=== PATIENT | male | born 1945 | race Caucasian/White ===

== ENCOUNTER 2018-05-23 01:47 | Inpatient (IN) | payer OTHER ==
[~2018-05-23] VITALS: Ht 185.4 cm; Wt 114.6 kg
[2018-05-23 02:09] LABS: BASOPHILS # (AUTO) 0.01 x10^3/uL (0-0.1); BASOPHILS % (AUTO) 0 % (0-1); EOSINOPHILS # (AUTO) 0.12 x10^3/uL (0-0.4); EOSINOPHILS % (AUTO) 1 % (1-7); LYMPHOCYTES # (AUTO) 1.11 x10^3/uL (1-3.4); LYMPHOCYTES % (AUTO) 13 % (22-44); MD NO; MEAN CORPUSCULAR HEMOGLOBIN 32.5 pg (27.5-34.5); MEAN CORPUSCULAR HGB CONC 34.5 g/dL (33.2-36.2); MEAN CORPUSCULAR VOLUME 94.3 fL (81-97); MEAN PLATELET VOLUME 7.6 fL (7.4-10.4); MONOCYTES # (AUTO) 0.67 x10^3/uL (0.2-0.8); MONOCYTES % (AUTO) 8 % (2-9); NEUTROPHILS # (AUTO) 6.47 x10^3/uL (1.8-6.8); NEUTROPHILS % (AUTO) 77 % (42-75); PLATELET COUNT 234 x10^3/uL (130-400); RED BLOOD COUNT 3.79 x10^6/uL (4.38-5.82); RED CELL DISTRIBUTION WIDTH 14.5 % (9.4-14.8)
[2018-05-23] MEDS ORDERED: DILT120C97 PO (02:12)
[2018-05-23] MEDS ORDERED: GABA800T PO (02:12)
[2018-05-23] MEDS ORDERED: VALS320T2 PO (02:12)
[2018-05-23] MEDS ORDERED: PRAV20TA2 PO (02:12)
[2018-05-23] MEDS ORDERED: PANT40TA3 PO (02:12)
[2018-05-23] MEDS ORDERED: CARV12.543 PO (02:12)
[2018-05-23] MEDS ORDERED: FURO40TA6 PO (02:12)
[2018-05-23] MEDS ORDERED: MORP-52 PO (02:12)
[2018-05-23] MEDS ORDERED: INSU100V8 SQ (02:12)
[2018-05-23] MEDS ORDERED: GLIP10TA PO (02:12)
[2018-05-23] MEDS ORDERED: HUMALOG SLIDING (02:12)
[2018-05-23] MEDS ORDERED: OXYC10TA6 PO (02:15)
[2018-05-23] MEDS ORDERED: TESTOSTERONE (02:15)
[2018-05-23] MEDS ORDERED: VIT D (02:15)
[2018-05-23] MEDS ORDERED: ALPH300C PO (02:15)
[2018-05-23] MEDS ORDERED: VIT B (02:15)
[2018-05-23] MEDS ORDERED: MULT1TAB9 PO (02:15)
[2018-05-23] MEDS ORDERED: [UNRECOGNIZED DRUG - OTHER] (02:15)
[2018-05-23 02:21] LABS: ALBUMIN 3.5 g/dL (3.4-5.0); ANION GAP 6 mmol/L (5-15); CALCIUM 9.4 mg/dL (8.5-10.1); CHLORIDE 108 mmol/L (98-107); CREATININE 1.84 mg/dL (0.7-1.3)
[2018-05-23 02:25] LABS: TROPONIN I 0.087 ng/mL (0.000-0.045)
--- NOTE | 2018-05-23 02:25 | NUR ---
DOPAMINE CHECKED WITH SILVESTRE GILL RN
[2018-05-23] MEDS ORDERED: DOPAMINE/D5W PMX 250 ML IV PRN (02:30)
[2018-05-23] MEDS ORDERED: PROPOFOL 100 ML IV PRN (02:30)
--- NOTE | 2018-05-23 02:30 | NUR ---
PT BIB CARE FLIGHT FROM [place]. EMS WAS CALLED BY PATIENT'S FAMILY TONIGHT. PT WAS FOUND TO BE IN 3 DEGREE HEART BLOCK EMS STARTED PACING PATIENT. PATIENT ARRIVED TO ED AND THEN WAS INTUBATED. PT PACED AT 70 BPM. STRONG RADIAL PULSE. PT IS SEDATED. VS STABLE. DR GASCA HAS SEEN PATIENT. WILL CONTINUE TO MONITOR.
--- NOTE | 2018-05-23 02:31 | NUR ---
TP RN: PT W/ NON-CONTRACTED INSURER, SR CARE PLUS. PER ERP/CARDIOLOGY, PT NOT STABLE ENOUGH FOR TRANSPORT AND WILL BE IMMEDIATELY TRANSPORTED TO [facility] FOR PERMANENT PACEMAKER. [facility] TRANSFER [facility]ENTER MADE AWARE
--- NOTE | 2018-05-23 02:32 | NUR ---
VENT SETTINGS: OXYGEN 30%, PEEP 5, RESP 16 RT IN ROOM
--- NOTE | 2018-05-23 02:40 | NUR ---
OG TUBE AND CARDOSO PLACED WHOLESALE DIAMOND BROKER. DR PARIKH IN ROOM
--- NOTE | 2018-05-23 02:41 | NUR ---
RT IN ROOM DOING ORAL CARE
--- NOTE | 2018-05-23 02:51 | NUR ---
DEONTE STARR: [phone]
--- NOTE | 2018-05-23 02:51 | NUR ---
DOPAMINE STOPPED PER DR GASCA
[2018-05-23] MEDS ORDERED: LIDOCAINE 1%, 20ML ONE (03:05)
[2018-05-23] MEDS ORDERED: SODIUM CHLORIDE 0.9% 1,000 ML IV SCH (03:28)
[2018-05-23] MEDS ORDERED: DOCUSATE 100 MG CAPSULE PO PRN (03:30)
[2018-05-23] MEDS ORDERED: ONDANSETRON ODT 4 MG PO PRN (03:30)
[2018-05-23] MEDS ORDERED: GABAPENTIN 300 MG CAPSULE PO PRN (03:30)
[2018-05-23] MEDS ORDERED: PROMETHAZINE 25 MG/ML, 1ML IM PRN (03:30)
[2018-05-23] MEDS ORDERED: morphine SULFATE 10 MG/ML, 1ML IVPush PRN (03:30)
[2018-05-23] MEDS ORDERED: POLYETHYLENE GLYCOL 17 GM PACKET PO PRN (03:30)
[2018-05-23] MEDS ORDERED: ONDANSETRON 2MG/ML, 2ML IVPush PRN (03:30)
[2018-05-23] MEDS ORDERED: hydrALAzine 20 MG/ML, 1ML IVPush PRN (03:30)
[2018-05-23] MEDS ORDERED: ACETAMINOPHEN 325 MG TABLET PO PRN (03:30)
[2018-05-23] MEDS ORDERED: BISACODYL 10 MG SUPP PR PRN ×2 (03:30→06:00)
[2018-05-23] MEDS ORDERED: PROPOFOL 100 ML IV ONE (03:47)
[2018-05-23] MEDS ORDERED: FENTANYL PF 100 MCG/2ML ONE (03:53)
[2018-05-23 03:54] LABS: HEMOGLOBIN A1C 9.7 % (4.2-6.3)
[2018-05-23 03:56] LABS: FREE T4 (FREE THYROXINE) 1.22 ng/dL (0.76-1.46); THYROID STIMULATING HORMONE 0.858 mIU/L (0.358-3.740)
[2018-05-23 05:30] VITALS: BP 143/62
[2018-05-23] MEDS ORDERED: DEXTROSE 50%, 50ML SYRINGE IVPush PRN (06:00)
[2018-05-23] MEDS: ALBUTEROL/IPRATROPIUM 2.5MG/0.5MG, 3 ML INLINE SCH ×5 (06:00→22:00)
[2018-05-23] MEDS ORDERED: LACTULOSE 20 GM/30 ML UDC NG PRN (06:00)
[2018-05-23] MEDS ORDERED: PHARMACY MAY ADJ FOR RENAL FX MC SCH (06:00)
[2018-05-23] MEDS ORDERED: SENNA/DOCUSATE TABLET NG PRN (06:00)
[2018-05-23] MEDS ORDERED: GLUCAGON 1 MG IM PRN (06:00)
[2018-05-23] MEDS ORDERED: DEXTROSE 4 GM TAB.CHEW PO PRN (06:00)
[2018-05-23] MEDS ORDERED: SENNOSIDES 8.8 MG/5 ML ORAL SOL NG PRN (06:00)
[2018-05-23] MEDS ORDERED: LIDOCAINE-MPF 1%, 2ML ENDO PRN (06:00)
[2018-05-23] MEDS ORDERED: FENTANYL PF 100 MCG/2ML IVPush PRN (06:00)
[2018-05-23 06:26] LABS: TROPONIN I 0.143 ng/mL (0.000-0.045)
[2018-05-23] MEDS ORDERED: INSULIN LISPRO 100 UNITS/ML, PEN SQ-INSULIN SCH (07:00)
[2018-05-23] MEDS: PROPOFOL 100 ML IV PRN ×4 (08:30→23:43)
[2018-05-23] MEDS: GABAPENTIN 400 MG CAPSULE PO SCH ×3 (08:30→21:40)
[2018-05-23] MEDS: PANTOPROZOLE 40MG TABLET PO SCH ×2 (08:30→21:40)
[2018-05-23] MEDS: SODIUM CHLORIDE FLUSH 10ML SYR IVF SCH ×2 (08:32→21:48)
[2018-05-23] MEDS: INSULIN LISPRO 100 UNITS/ML, PEN SQ-INSULIN SCH ×4 (08:54→21:49)
[2018-05-23] MEDS: SODIUM CHLORIDE 0.9% 1,000 ML IV SCH ×2 (09:30→16:50)
[2018-05-23 12:24] LABS: TROPONIN I 0.119 ng/mL (0.000-0.045)
[2018-05-23 16:53] LABS: CULTURE INDICATED? YES; MICROSCOPIC INDICATED
[2018-05-23] MEDS: PRAVASTATIN 20 MG TABLET PO SCH (21:40)
[2018-05-24] MEDS: OXYcodone IR 5MG TABLET PO PRN ×2 (02:26→22:35)
[2018-05-24] MEDS: ALBUTEROL/IPRATROPIUM 2.5MG/0.5MG, 3 ML INLINE SCH ×2 (02:29→06:45)
[2018-05-24 04:40] LABS: BASOPHILS # (AUTO) 0.07 x10^3/uL (0-0.1); BASOPHILS % (AUTO) 1 % (0-1); EOSINOPHILS # (AUTO) 0.03 x10^3/uL (0-0.4); EOSINOPHILS % (AUTO) 0 % (1-7); LYMPHOCYTES # (AUTO) 0.82 x10^3/uL (1-3.4); LYMPHOCYTES % (AUTO) 9 % (22-44); MD NO; MEAN CORPUSCULAR HEMOGLOBIN 32.6 pg (27.5-34.5); MEAN CORPUSCULAR HGB CONC 34.8 g/dL (33.2-36.2); MEAN CORPUSCULAR VOLUME 93.6 fL (81-97); MEAN PLATELET VOLUME 7.9 fL (7.4-10.4); MONOCYTES # (AUTO) 0.92 x10^3/uL (0.2-0.8); MONOCYTES % (AUTO) 10 % (2-9); NEUTROPHILS % (AUTO) 79 % (42-75); PLATELET COUNT 181 x10^3/uL (130-400); RED BLOOD COUNT 3.67 x10^6/uL (4.38-5.82); RED CELL DISTRIBUTION WIDTH 14.5 % (9.4-14.8)
[2018-05-24 04:50] LABS: CHLORIDE 112 mmol/L (98-107)
[2018-05-24 04:58] LABS: ALANINE AMINOTRANSFERASE 42 U/L (12-78); ALKALINE PHOSPHATASE 70 U/L (45-117); ANION GAP 8 mmol/L (5-15); BILIRUBIN,TOTAL 0.7 mg/dL (0.2-1.0); CALCIUM 8.9 mg/dL (8.5-10.1); CHOL/HDL RATIO 3.1; CHOLESTEROL, TOTAL 148 mg/dL (140-239); CREATININE 1.33 mg/dL (0.7-1.3); HDL CHOL % 32 % (26-37); HDL CHOLESTEROL (DIRECT) 47 mg/dL (40-60); LDL CHOLESTEROL,CALCULATED 60 mg/dL (54-169); LDL/HDL RATIO 1.3 (0.5-3.0); TOTAL PROTEIN 6.6 g/dL (6.4-8.2); TRIGLYCERIDES 204 mg/dL (50-200); VLDL CHOLESTEROL 41 mg/dL (0-25)
[2018-05-24] MEDS: PROPOFOL 100 ML IV PRN (06:17)
[2018-05-24] MEDS: PANTOPROZOLE 40MG TABLET PO SCH ×2 (08:28→20:46)
[2018-05-24] MEDS: GABAPENTIN 400 MG CAPSULE PO SCH ×3 (08:28→20:46)
[2018-05-24] MEDS: SODIUM CHLORIDE FLUSH 10ML SYR IVF SCH ×2 (08:29→20:46)
[2018-05-24] MEDS: INSULIN LISPRO 100 UNITS/ML, PEN SQ-INSULIN SCH ×4 (08:35→22:36)
[2018-05-24] MEDS ORDERED: SODIUM CHLORIDE 0.9% 1,000 ML IV SCH (09:00)
[2018-05-24] MEDS ORDERED: FUROSEMIDE 20 MG/2 ML IV ONE (09:30)
[2018-05-24] MEDS: VALSARTAN 320 MG TABLET PO SCH (12:12)
[2018-05-24] MEDS: HEPARIN 5,000 UNITS/ML, 1ML SQ SCH (17:31)
[2018-05-24 17:39] VITALS: BP 118/74
[2018-05-24 19:45] VITALS: BP 142/77
[2018-05-24] MEDS: PRAVASTATIN 20 MG TABLET PO SCH (20:46)
[2018-05-25 02:15] VITALS: BP 124/57
[2018-05-25] MEDS: HEPARIN 5,000 UNITS/ML, 1ML SQ SCH ×3 (02:17→18:23)
[2018-05-25 05:00] LABS: BASOPHILS # (AUTO) 0.01 x10^3/uL (0-0.1); BASOPHILS % (AUTO) 0 % (0-1); EOSINOPHILS # (AUTO) 0.12 x10^3/uL (0-0.4); EOSINOPHILS % (AUTO) 2 % (1-7); LYMPHOCYTES # (AUTO) 1.37 x10^3/uL (1-3.4); LYMPHOCYTES % (AUTO) 19 % (22-44); MD NO; MEAN CORPUSCULAR HEMOGLOBIN 32.6 pg (27.5-34.5); MEAN CORPUSCULAR HGB CONC 34.2 g/dL (33.2-36.2); MEAN CORPUSCULAR VOLUME 95.4 fL (81-97); MONOCYTES # (AUTO) 0.79 x10^3/uL (0.2-0.8); MONOCYTES % (AUTO) 11 % (2-9); NEUTROPHILS # (AUTO) 5.09 x10^3/uL (1.8-6.8); NEUTROPHILS % (AUTO) 69 % (42-75); PLATELET COUNT 165 x10^3/uL (130-400); RED BLOOD COUNT 3.59 x10^6/uL (4.38-5.82); RED CELL DISTRIBUTION WIDTH 14.3 % (9.4-14.8)
[2018-05-25 05:08] LABS: ANION GAP 5 mmol/L (5-15); CHLORIDE 113 mmol/L (98-107); CREATININE 1.28 mg/dL (0.7-1.3)
[2018-05-25 07:55] VITALS: BP 158/74
[2018-05-25] MEDS: SODIUM CHLORIDE FLUSH 10ML SYR IVF SCH ×2 (07:59→20:28)
[2018-05-25] MEDS: PANTOPROZOLE 40MG TABLET PO SCH ×2 (07:59→20:32)
[2018-05-25] MEDS: VALSARTAN 320 MG TABLET PO SCH (08:00)
[2018-05-25] MEDS: GABAPENTIN 400 MG CAPSULE PO SCH ×3 (08:00→20:30)
[2018-05-25] MEDS: INSULIN LISPRO 100 UNITS/ML, PEN SQ-INSULIN SCH ×4 (08:42→20:29)
[2018-05-25 13:11] VITALS: BP 143/74
[2018-05-25 19:49] VITALS: BP 143/75
[2018-05-25] MEDS: PRAVASTATIN 20 MG TABLET PO SCH (20:29)
[2018-05-26] MEDS: HEPARIN 5,000 UNITS/ML, 1ML SQ SCH ×2 (01:31→10:35)
[2018-05-26 02:17] VITALS: BP 155/76
[2018-05-26 05:10] LABS: BASOPHILS # (AUTO) 0.05 x10^3/uL (0-0.1); BASOPHILS % (AUTO) 1 % (0-1); EOSINOPHILS # (AUTO) 0.23 x10^3/uL (0-0.4); EOSINOPHILS % (AUTO) 3 % (1-7); LYMPHOCYTES # (AUTO) 1.31 x10^3/uL (1-3.4); LYMPHOCYTES % (AUTO) 19 % (22-44); MD NO; MEAN CORPUSCULAR HEMOGLOBIN 32.9 pg (27.5-34.5); MEAN CORPUSCULAR HGB CONC 34.6 g/dL (33.2-36.2); MEAN CORPUSCULAR VOLUME 95.1 fL (81-97); MONOCYTES % (AUTO) 10 % (2-9); NEUTROPHILS # (AUTO) 4.71 x10^3/uL (1.8-6.8); NEUTROPHILS % (AUTO) 67 % (42-75); PLATELET COUNT 184 x10^3/uL (130-400); RED BLOOD COUNT 3.48 x10^6/uL (4.38-5.82)
[2018-05-26 07:45] VITALS: BP 143/73
[2018-05-26] MEDS: INSULIN LISPRO 100 UNITS/ML, PEN SQ-INSULIN SCH ×2 (08:17→11:46)
[2018-05-26] MEDS: GABAPENTIN 400 MG CAPSULE PO SCH (08:17)
[2018-05-26] MEDS: PANTOPROZOLE 40MG TABLET PO SCH (08:18)
[2018-05-26] MEDS: SODIUM CHLORIDE FLUSH 10ML SYR IVF SCH (08:18)
[2018-05-26] MEDS: VALSARTAN 320 MG TABLET PO SCH (08:18)
[2018-05-26 12:33] VITALS: BP 168/74
[2018-05-26] MEDS ORDERED: PANT40TA5 PO (14:14)
== END 2018-05-26 16:25 | DRG 280 ==
LOC: ED 02:15 → EDIP 02:40 → CCU 04:19 → 5SO 05-24 17:13
PROVIDERS: ADMIT Internal Medicine; ATTEND Internal Medicine
PROC: 0BH17EZ Insertion of Endotracheal Airway into Trachea, Via Natural or Artificial Opening (ICD-10-PCS; principal; 2018-05-23)
PROC: 5A1945Z Respiratory Ventilation, 24-96 Consecutive Hours (ICD-10-PCS; 2018-05-23)
PROC: 5A1223Z Performance of Cardiac Pacing, Continuous (ICD-10-PCS; 2018-05-23)
DX: I21.4 Non-ST elevation (NSTEMI) myocardial infarction (principal); J96.90 Respiratory failure, unspecified, unspecified whether with hypoxia or hypercapnia; I44.2 Atrioventricular block, complete; I50.42 Chronic combined systolic (congestive) and diastolic (congestive) heart failure; Z99.11 Dependence on respirator [ventilator] status; I42.9 Cardiomyopathy, unspecified; J98.11 Atelectasis; G93.40 Encephalopathy, unspecified; E11.65 Type 2 diabetes mellitus with hyperglycemia; E78.00 Pure hypercholesterolemia, unspecified; E78.5 Hyperlipidemia, unspecified; G89.4 Chronic pain syndrome; I11.0 Hypertensive heart disease with heart failure; K21.9 Gastro-esophageal reflux disease without esophagitis; K27.9 Peptic ulcer, site unspecified, unspecified as acute or chronic, without hemorrhage or perforation; Z75.1 Person awaiting admission to adequate facility elsewhere; M15.9 Polyosteoarthritis, unspecified; Z79.4 Long term (current) use of insulin; Z79.891 Long term (current) use of opiate analgesic; Z79.899 Other long term (current) drug therapy; Z87.11 Personal history of peptic ulcer disease; Z96.652 Presence of left artificial knee joint; E11.40 Type 2 diabetes mellitus with diabetic neuropathy, unspecified
CPT/HCPCS: 0399T; 33210; 36415; 36600; 71045; 80048; 80053; 80061; 81001; 82040; 82803; 82962; 83036; 83735; 84439; 84443; 84478; 84481; 84484; 85025; 87070; 87081; 87086; 87205; 92953; 93005; 93306; 94002; 94003; 94640; 96365; 99291; C1894; G0378; J1265; J1644; J2550; J2704; J3010; J3490; J7620; J1815; J1940; J7030